=== PATIENT | female | born 1965 | race Hispanic/Latino ===

== ENCOUNTER 2016-10-28 16:40 | Emergency (ER) | payer OTHER ==
[2016-10-28 17:01] VITALS: TEMP 99
--- NOTE | 2016-10-28 17:05 | ED.PDOC ---
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 [employer] carrying a bagful of bedlinens with her left hand then after putting down the bags felt dull ache on her left elbow and been constant since the incident.Denies pervious injury to the involved upper extremity.Denies numbness,or weakness Occurred: yesterday Pain - Upper Extremity: moderate: Elbow, left Method of Injury: unknown Improving Factors: rest Worsening Factors: movement Allergies/Adverse Reactions: Allergies NO KNOWN ALLERGY Allergy (Verified 10/28/16 17:01) Home Medications: Ambulatory Orders NK [NK] 10/28/16 Review of Systems - Review of Systems Constitutional: States: no symptoms reported EENTM: States: no symptoms reported Respiratory: States: no symptoms reported Cardiology: States: no symptoms reported Gastrointestinal/Abdominal: States: no symptoms reported Genitourinary: States: no symptoms reported Musculoskeletal: States: see HPI Past Medical History (General) - Patient Medical History Hx Stroke: No Hx Dementia: No Hx Hypertension: No Hx Diabetes: No Family Medical History - Family History Mother Family History: Unknown Hx Family Hypertension: Yes - parents Hx Family Diabetes: Yes - parents Physical Exam - Physical Exam General Appearance: Alert, Comfortable, No apparent distress Eyes, Ears, Nose, Throat Exam: normal ENT inspection Neck: non-tender, supple Cardiovascular/Respiratory: regular rate, rhythm, no M/R/G, normal peripheral pulses, normal breath sounds Abdominal Exam: non-tender, no organomegaly Back Exam: no vertebral tenderness Shoulder Exam: no evidence of injury Elbow/Forearm Exam: bone tenderness - left olecranon elbow, soft tissue tenderness - left elbow Wrist Exam: no evidence of injury Hand Exam: no evidence of injury Neuro/Tendon: normal sensation, normal motor functions Mental Status: alert Skin Exam: normal color, warm/dry Progress - Progress Progress: 10/28/16 17:22 Vital Signs - 8 hr 10/28/16 16:55 Temperature 99.0 F Pulse Rate [ 65 pulse ox] Respiratory 16 Rate Blood Pressure 160/91 [Left Arm] O2 Sat by Pulse 99 Oximetry - EKG/XRAY/CT XRAY: elbow - left Departure - Departure Clinical Impression: Strain of elbow, left Qualifiers: Encounter type: initial encounter Qualified Code(s): S56.912A - Strain of unspecified muscles, fascia and tendons at forearm level, left arm, initial encounter Time of Disposition: 18:04 Disposition: Discharge to Home or Self Care Condition: Good Instructions: Elbow Sprain, DI for Elbow Sprain Referrals: CARMINA OSCAR IV, PROJECT SUPERINTENDENT [Primary Care Provider] - 1-2 Weeks Home Medications: Ambulatory Orders NK [NK] 10/28/16 Additional Instructions: Continue with ice pack 20 minutes 3 x a day during waking hours only until better;FOLLOW UP WITH RAUL MCCAIN MD 11/01/2016 call for appointment for recheck;May take the following over the counter medications- ASPERCREME-apply to affected area 3 x a day until better;ALEVE-2 tablets by mouth am/pm for 7-10 days
--- NOTE | 2016-10-28 17:36 | RAD ---
EXAM DESCRIPTION: Elbow,Left 3 Views CLINICAL HISTORY: 51 years ,Female pain COMPARISON: None. TECHNIQUE: LEFT elbow, Three view FINDINGS: No acute fractures or dislocations are identified. No osseous destructive lesions. No evidence of joint effusion. IMPRESSION: No acute fractures are identified. If symptoms persist, followup is recommended in 7-10 days. Electronically signed by: Genevieve Reinoso 10/28/2016 5:35 PM CDT
[2016-10-28 18:18] VITALS: BP 178/91; O2SAT 97
== END 2016-10-28 18:18 | disposition home or self-care (01) ==
LOC: ER 16:40
DX: S56.912A Strain of unspecified muscles, fascia and tendons at forearm level, left arm, initial encounter (principal); X50.0XXA Overexertion from strenuous movement or load, initial encounter; Y92.59 Other trade areas as the place of occurrence of the external cause; Y99.0 Civilian activity done for income or pay